=== PATIENT | female | born 1930 | race Caucasian/White ===

== ENCOUNTER 2020-02-17 19:17 | Inpatient (IN) | payer MEDICAID ==
[~2020-02-17] VITALS: Ht 160 cm; Wt 67.1 kg
[2020-02-17] MEDS ORDERED: ONDANSETRON HCL 4MG/2ML INJ IV STA (20:07)
[2020-02-17] MEDS ORDERED: MORPHINE SULFATE 4 MG/ML CPJ (NOT FOR IM USE) IV STA (20:07)
[2020-02-17] MEDS ORDERED: SODIUM CHLORIDE 0.9% 1,000 ML IV ONE (20:07)
[2020-02-17 20:28] LABS: BASOPHILS % 0.4 % (0.0-2.0); EOSINOPHILS % 0.8 % (0.0-5.0); HEMATOCRIT. 38.1 % (36.0-48.0); HEMOGLOBIN. 13.1 g/dL (12.0-16.0); LYMPHOCYTES % 9.7 % (20.0-50.0); MEAN CORPUSCULAR HEMOGLOBIN 29.6 pg (28.0-32.0); MEAN CORPUSCULAR VOLUME 86.5 fL (81.0-99.0); NEUTROPHILS % 85.1 % (40.0-76.0); RED CELL DISTRIBUTION WIDTH 13.7 % (11.6-14.6)
[2020-02-17 20:38] LABS: PROTHROMBIN TIME 10.2 sec (9.6-11.0)
[2020-02-17 20:45] LABS: CHLORIDE 107 mEq/L (98-107)
[2020-02-17 21:09] LABS: MEAN PLATELET VOLUME 9.4 fl (7.4-10.4)
[2020-02-17 21:11] LABS: PLATELET 217 x1000/uL (130-400)
[2020-02-17] MEDS ORDERED: IOHEXOL-300 100 ML BOTTLE ONE (23:21)
[2020-02-18] VITALS (72 sets, daily range): BP systolic 114–172; BP diastolic 59–96
[2020-02-18] MEDS ORDERED: FLUCONAZOLE 400MG/200ML PREMIX IV SCH
[2020-02-18] MEDS ORDERED: PIPERACILLIN/TAZOBACTAM 3.375GM/50ML PREMIX IV SCH
[2020-02-18] MEDS ORDERED: MORPHINE SULFATE 4 MG/ML CPJ (NOT FOR IM USE) IV ONE (00:15)
[2020-02-18] MEDS ORDERED: FENTANYL CITRATE/PF 50MCG/ML 2ML VIAL ONE (01:16)
[2020-02-18] MEDS ORDERED: PROPOFOL 200MG/20ML VIAL IV ONE (01:16)
[2020-02-18] MEDS ORDERED: ROCURONIUM BROMIDE 10MG/ML VIAL 5ML IV ONE (01:16)
[2020-02-18] MEDS ORDERED: MIDAZOLAM HCL 2 MG/2 ML VIAL ONE (01:16)
[2020-02-18] MEDS ORDERED: GLYCOPYRROLATE 0.2 MG/ML 2ML VIAL ONE (01:16)
[2020-02-18] MEDS ORDERED: NEOSTIGMINE METHYLSULFATE 1MG/ML 10 ML VIAL ONE (01:16)
[2020-02-18] MEDS ORDERED: SUCCINYLCHOLINE CHLORIDE 200MG/10ML IV ONE (01:17)
[2020-02-18] MEDS ORDERED: CEFAZOLIN SODIUM 1000MG/VIAL ONE (01:17)
[2020-02-18] MEDS ORDERED: ONDANSETRON HCL 4MG/2ML INJ ONE (01:17)
[2020-02-18] MEDS ORDERED: EPHEDRINE SULFATE 50MG/ML VIAL ONE (01:17)
[2020-02-18] MEDS ORDERED: METOCLOPRAMIDE HCL 10MG/2ML VIAL ONE (01:17)
[2020-02-18] MEDS ORDERED: SODIUM CHLORIDE 0.9% 10ML VIAL ONE (01:17)
[2020-02-18] MEDS ORDERED: LIDOCAINE HCL/PF 1% 10 MG/ML 5ML VIAL ONE (01:17)
[2020-02-18] MEDS ORDERED: PHENYLEPHRINE HCL 10 MG/ML 1ML (IV VIAL) IV ONE (01:17)
[2020-02-18] MEDS ORDERED: ETOMIDATE 2MG/ML 10ML VIAL IV ONE (01:18)
[2020-02-18] MEDS ORDERED: ONDANSETRON HCL 4MG/2ML INJ IV PRN (01:30)
[2020-02-18] MEDS ORDERED: MORPHINE SULFATE 2 MG/ML CPJ (NOT FOR IM USE) IV PRN (01:30)
[2020-02-18] MEDS ORDERED: HYDROMORPHONE HCL/PF 2MG/ML CPJ IV PRN (01:30)
[2020-02-18] MEDS ORDERED: MORPHINE SULFATE 4 MG/ML CPJ (NOT FOR IM USE) IV PRN (01:45)
[2020-02-18] MEDS ORDERED: FLUCONAZOLE 400MG/200ML BAG 200 ML IV SCH ×2 (02:00→04:00)
[2020-02-18] MEDS ORDERED: SODIUM CHLORIDE 0.9% 1,000 ML IV ONE (02:00)
[2020-02-18] MEDS: MORPHINE SULFATE 2 MG/ML CPJ (NOT FOR IM USE) IV PRN ×2 (03:22→12:44)
[2020-02-18] MEDS ORDERED: MEPERIDINE HCL/PF 25MG/ML CPJ IV PRN (03:26)
[2020-02-18] MEDS: DEXT 5%/0.45% NACL KCL 20MEQ/L 1,000 ML IV SCH ×2 (04:19→14:00)
[2020-02-18] MEDS: HYDROMORPHONE HCL/PF 2MG/ML CPJ IV PRN ×2 (04:36→15:28)
[2020-02-18 05:22] LABS: CHLORIDE 113 mEq/L (98-107)
[2020-02-18 05:29] LABS: HEMATOCRIT. 35.4 % (36.0-48.0); HEMOGLOBIN. 12.3 g/dL (12.0-16.0); MEAN CORPUSCULAR VOLUME 86.4 fL (81.0-99.0); MEAN PLATELET VOLUME 9.4 fl (7.4-10.4); PLATELET 156 x1000/uL (130-400); RED CELL DISTRIBUTION WIDTH 13.5 % (11.6-14.6)
[2020-02-18] MEDS: FAMOTIDINE 20MG/2ML VIAL IV SCH (09:59)
[2020-02-18] MEDS ORDERED: PIPERACILLIN/TAZOBACTAM 3.375 G in DEXT 5% WATER 100 ML IV SCH (11:00)
[2020-02-18] MEDS: PIPERACILLIN/TAZOBACTAM 2.25 G in DEXTROSE 5% WATER 50 ML IV SCH ×3 (13:48→23:08)
[2020-02-18 18:05] LABS: PLATELET ESTIMATE NORMAL
[2020-02-19] VITALS (30 sets, daily range): BP systolic 136–165; BP diastolic 66–97
[2020-02-19] MEDS: DEXT 5%/0.45% NACL KCL 20MEQ/L 1,000 ML IV SCH ×4 (00:20→23:17)
[2020-02-19] MEDS: HYDROMORPHONE HCL/PF 2MG/ML CPJ IV PRN ×3 (01:47→16:12)
[2020-02-19] MEDS ORDERED: FLUCONAZOLE 200 MG/100ML BAG 100 ML IV SCH (04:00)
[2020-02-19] MEDS: PIPERACILLIN/TAZOBACTAM 2.25 G in DEXTROSE 5% WATER 50 ML IV SCH ×4 (05:21→23:17)
[2020-02-19 05:22] LABS: HEMATOCRIT. 34.4 % (36.0-48.0); HEMOGLOBIN. 11.6 g/dL (12.0-16.0); MEAN CORPUSCULAR HEMOGLOBIN 29.4 pg (28.0-32.0); MEAN PLATELET VOLUME 9.1 fl (7.4-10.4); PLATELET 195 x1000/uL (130-400); RED BLOOD CELL COUNT 3.96 mill/uL (4.2-5.4); RED CELL DISTRIBUTION WIDTH 13.7 % (11.6-14.6)
[2020-02-19] MEDS: FAMOTIDINE 20MG/2ML VIAL IV SCH (08:58)
[2020-02-19 10:12] LABS: PLATELET ESTIMATE NORMAL
[2020-02-19] MEDS ORDERED: FLUCONAZOLE 400MG/200ML BAG 200 ML IV SCH (10:30)
[2020-02-19 11:18] LABS: CLARITY URINE CLOUDY (CLEAR); COLOR URINE YELLOW (YELLOW); KETONES URINE NEGATIVE (NEGATIVE); LEUKOCYTE ESTERASE URINE NEGATIVE (NEGATIVE); NITRITE URINE NEGATIVE (NEGATIVE); OCCULT BLOOD URINE 2+ (NEGATIVE); PROTEIN URINE 1+ (NEGATIVE); SPECIFIC GRAVITY URINE 1.021 (1.005-1.030); UROBILINOGEN URINE 0.2 E.U./dL (0.2-1.0)
[2020-02-20] VITALS (11 sets, daily range): BP systolic 146–171; BP diastolic 75–103
[2020-02-20] MEDS: PIPERACILLIN/TAZOBACTAM 2.25 G in DEXTROSE 5% WATER 50 ML IV SCH ×3 (06:00→17:38)
[2020-02-20 08:11] LABS: HEMOGLOBIN. 11.2 g/dL (12.0-16.0); MEAN CORPUSCULAR HEMOGLOBIN 29.3 pg (28.0-32.0); MEAN CORPUSCULAR VOLUME 86.3 fL (81.0-99.0); MEAN PLATELET VOLUME 9.1 fl (7.4-10.4); PLATELET 201 x1000/uL (130-400); RED BLOOD CELL COUNT 3.82 mill/uL (4.2-5.4)
[2020-02-20] MEDS: DEXT 5%/0.45% NACL KCL 20MEQ/L 1,000 ML IV SCH ×2 (08:27→17:38)
[2020-02-20] MEDS: FAMOTIDINE 20MG/2ML VIAL IV SCH (08:27)
[2020-02-20] MEDS: FLUCONAZOLE 200 MG/100ML BAG 100 ML IV SCH (08:28)
[2020-02-20] MEDS: MORPHINE SULFATE 2 MG/ML CPJ (NOT FOR IM USE) IV PRN ×3 (08:29→22:24)
[2020-02-20] MEDS ORDERED: HYDRALAZINE 20MG/ML VIAL IV PRN (08:45)
[2020-02-20] MEDS: HYDRALAZINE 20MG/ML VIAL IV PRN (15:28)
[2020-02-20 15:50] LABS: PLATELET ESTIMATE NORMAL
[2020-02-20] MEDS ORDERED: VANCOMYCIN 1250MG in DEXTROSE 5% WATER 250ML IV NR (20:00)
[2020-02-21] VITALS (12 sets, daily range): BP systolic 132–196; BP diastolic 54–103
[2020-02-21] MEDS: PIPERACILLIN/TAZOBACTAM 2.25 G in DEXTROSE 5% WATER 50 ML IV SCH ×5 (02:22→23:41)
[2020-02-21] MEDS: DEXT 5%/0.45% NACL KCL 20MEQ/L 1,000 ML IV SCH ×3 (02:27→23:41)
[2020-02-21] MEDS: FLUCONAZOLE 200 MG/100ML BAG 100 ML IV SCH (05:31)
[2020-02-21 05:55] LABS: HEMATOCRIT. 33.4 % (36.0-48.0); HEMOGLOBIN. 11.5 g/dL (12.0-16.0); MEAN CORPUSCULAR HEMOGLOBIN 29.5 pg (28.0-32.0); MEAN CORPUSCULAR VOLUME 85.3 fL (81.0-99.0); MEAN PLATELET VOLUME 8.7 fl (7.4-10.4); PLATELET 227 x1000/uL (130-400); RED BLOOD CELL COUNT 3.92 mill/uL (4.2-5.4)
[2020-02-21 06:34] LABS: CHLORIDE 102 mEq/L (98-107)
[2020-02-21] MEDS: FAMOTIDINE 20MG/2ML VIAL IV SCH (09:34)
[2020-02-21 10:06] LABS: PLATELET ESTIMATE NORMAL
[2020-02-21] MEDS: MORPHINE SULFATE 2 MG/ML CPJ (NOT FOR IM USE) IV PRN (13:07)
[2020-02-21] MEDS ORDERED: VANCOMYCIN 750 MG PREMIX 150 ML IV SCH (14:00)
[2020-02-21] MEDS: ONDANSETRON HCL 4MG/2ML INJ IV PRN (14:05)
[2020-02-22] VITALS (8 sets, daily range): BP systolic 135–160; BP diastolic 63–89
[2020-02-22] MEDS: PIPERACILLIN/TAZOBACTAM 2.25 G in DEXTROSE 5% WATER 50 ML IV SCH ×4 (05:16→23:29)
[2020-02-22 06:04] LABS: HEMATOCRIT. 29.6 % (36.0-48.0); HEMOGLOBIN. 10.3 g/dL (12.0-16.0); MEAN CORPUSCULAR HEMOGLOBIN 29.3 pg (28.0-32.0); PLATELET 202 x1000/uL (130-400); RED BLOOD CELL COUNT 3.52 mill/uL (4.2-5.4); RED CELL DISTRIBUTION WIDTH 12.9 % (11.6-14.6)
[2020-02-22 06:07] LABS: CHLORIDE 105 mEq/L (98-107)
[2020-02-22] MEDS: FLUCONAZOLE 200 MG/100ML BAG 100 ML IV SCH (06:30)
[2020-02-22] MEDS: DEXT 5%/0.45% NACL KCL 20MEQ/L 1,000 ML IV SCH (09:01)
[2020-02-22] MEDS: FAMOTIDINE 20MG/2ML VIAL IV SCH (09:01)
[2020-02-22] MEDS: HYDRALAZINE 20MG/ML VIAL IV PRN (10:19)
[2020-02-22] MEDS: MORPHINE SULFATE 2 MG/ML CPJ (NOT FOR IM USE) IV PRN ×2 (11:26→22:41)
[2020-02-22] MEDS ORDERED: POTASSIUM CHLORIDE INJ 40 MEQ in DEXT 5% WATER 250 ML IV SCH (14:00)
[2020-02-22 14:22] LABS: PLATELET ESTIMATE NORMAL
[2020-02-23 00:12] VITALS: BP 163/86
[2020-02-23] MEDS: DEXT 5%/0.45% NACL KCL 20MEQ/L 1,000 ML IV SCH ×3 (01:47→15:38)
[2020-02-23 04:00] VITALS: BP 158/86
[2020-02-23] MEDS: PIPERACILLIN/TAZOBACTAM 2.25 G in DEXTROSE 5% WATER 50 ML IV SCH ×2 (06:19→11:27)
[2020-02-23] MEDS: FLUCONAZOLE 200 MG/100ML BAG 100 ML IV SCH (06:27)
[2020-02-23] MEDS: HYDRALAZINE 20MG/ML VIAL IV PRN (06:34)
[2020-02-23 07:23] LABS: BASOPHILS % 0.4 % (0.0-2.0); HEMATOCRIT. 31.1 % (36.0-48.0); HEMOGLOBIN. 10.9 g/dL (12.0-16.0); LYMPHOCYTES % 7.2 % (20.0-50.0); MEAN CORPUSCULAR HEMOGLOBIN 29.5 pg (28.0-32.0); MEAN CORPUSCULAR VOLUME 84.7 fL (81.0-99.0); MEAN PLATELET VOLUME 7.8 fl (7.4-10.4); MONOCYTES % 10.9 % (2.0-8.0); NEUTROPHILS % 79.5 % (40.0-76.0); PLATELET 208 x1000/uL (130-400); RED BLOOD CELL COUNT 3.68 mill/uL (4.2-5.4); RED CELL DISTRIBUTION WIDTH 13.3 % (11.6-14.6)
[2020-02-23 07:36] LABS: CHLORIDE 105 mEq/L (98-107)
[2020-02-23 08:00] VITALS: BP 137/76
[2020-02-23] MEDS: FAMOTIDINE 20MG/2ML VIAL IV SCH (08:10)
[2020-02-23] MEDS: MORPHINE SULFATE 2 MG/ML CPJ (NOT FOR IM USE) IV PRN ×2 (10:03→20:58)
[2020-02-23 12:00] VITALS: BP 145/77
[2020-02-23] MEDS ORDERED: CEFTRIAXONE 2 G PREMIX 50 ML IV SCH (14:30)
[2020-02-23] MEDS: CEFTRIAXONE 2 G in DEXTROSE 5% WATER 50 ML IV SCH (15:38)
[2020-02-23 16:00] VITALS: BP 130/88
[2020-02-23 20:00] VITALS: BP 146/72
[2020-02-24] VITALS (7 sets, daily range): BP systolic 147–168; BP diastolic 72–100
[2020-02-24] MEDS: DEXT 5%/0.45% NACL KCL 20MEQ/L 1,000 ML IV SCH ×3 (04:37→23:03)
[2020-02-24] MEDS: FLUCONAZOLE 200 MG/100ML BAG 100 ML IV SCH (05:00)
[2020-02-24 07:16] LABS: BASOPHILS % 0.5 % (0.0-2.0); EOSINOPHILS % 1.9 % (0.0-5.0); HEMATOCRIT. 32.6 % (36.0-48.0); HEMOGLOBIN. 11.2 g/dL (12.0-16.0); LYMPHOCYTES % 9.1 % (20.0-50.0); MEAN CORPUSCULAR HEMOGLOBIN 28.9 pg (28.0-32.0); MEAN CORPUSCULAR VOLUME 84.3 fL (81.0-99.0); MEAN PLATELET VOLUME 7.7 fl (7.4-10.4); NEUTROPHILS % 78.5 % (40.0-76.0); PLATELET 223 x1000/uL (130-400); RED BLOOD CELL COUNT 3.87 mill/uL (4.2-5.4); RED CELL DISTRIBUTION WIDTH 13.3 % (11.6-14.6)
[2020-02-24 07:45] LABS: CHLORIDE 103 mEq/L (98-107)
[2020-02-24] MEDS: FAMOTIDINE 20MG/2ML VIAL IV SCH (08:49)
[2020-02-24] MEDS: MORPHINE SULFATE 2 MG/ML CPJ (NOT FOR IM USE) IV PRN ×2 (08:50→12:51)
[2020-02-24] MEDS: CEFTRIAXONE 2 G in DEXTROSE 5% WATER 50 ML IV SCH (16:20)
[2020-02-24] MEDS ORDERED: DOCUSATE SODIUM 250MG CAPSULE PO PRN (18:45)
[2020-02-24] MEDS: MORPHINE SULFATE 4 MG/ML CPJ (NOT FOR IM USE) IV PRN (19:43)
[2020-02-24] MEDS: HYDRALAZINE 10 MG in SODIUM CHLORIDE 0.9% 49.5 ML IV PRN (21:47)
[2020-02-25] VITALS: BP 143/62
[2020-02-25 04:00] VITALS: BP 157/72
[2020-02-25 05:03] LABS: CHLORIDE 102 mEq/L (98-107)
[2020-02-25 05:59] LABS: BASOPHILS % 0.6 % (0.0-2.0); EOSINOPHILS % 2.2 % (0.0-5.0); HEMATOCRIT. 27.7 % (36.0-48.0); HEMOGLOBIN. 9.8 g/dL (12.0-16.0); LYMPHOCYTES % 10.1 % (20.0-50.0); MEAN CORPUSCULAR HEMOGLOBIN 29.6 pg (28.0-32.0); MEAN CORPUSCULAR VOLUME 83.2 fL (81.0-99.0); MEAN PLATELET VOLUME 7.6 fl (7.4-10.4); NEUTROPHILS % 78.1 % (40.0-76.0); PLATELET 208 x1000/uL (130-400); RED BLOOD CELL COUNT 3.33 mill/uL (4.2-5.4); RED CELL DISTRIBUTION WIDTH 13.1 % (11.6-14.6)
[2020-02-25] MEDS: HYDRALAZINE 10 MG in SODIUM CHLORIDE 0.9% 49.5 ML IV PRN ×2 (07:01→20:40)
[2020-02-25 08:00] VITALS: BP 148/59
[2020-02-25] MEDS: FAMOTIDINE 20MG/2ML VIAL IV SCH (08:42)
[2020-02-25] MEDS: MORPHINE SULFATE 4 MG/ML CPJ (NOT FOR IM USE) IV PRN ×4 (10:06→22:05)
[2020-02-25 11:37] VITALS: BP 154/72
[2020-02-25] MEDS: CEFTRIAXONE 2 G in DEXTROSE 5% WATER 50 ML IV SCH (15:06)
[2020-02-25] MEDS: DEXT 5%/0.45% NACL KCL 20MEQ/L 1,000 ML IV SCH (15:06)
[2020-02-25 16:00] VITALS: BP 149/71
[2020-02-25] MEDS: ONDANSETRON HCL 4MG/2ML INJ IV PRN (18:01)
[2020-02-25] MEDS ORDERED: FLUCONAZOLE 100MG TABLET PO SCH (19:45)
[2020-02-25 20:00] VITALS: BP 162/74
[2020-02-26] VITALS: BP 145/63
[2020-02-26] MEDS: DEXT 5%/0.45% NACL KCL 20MEQ/L 1,000 ML IV SCH (03:25)
[2020-02-26 04:00] VITALS: BP 147/65
[2020-02-26 06:18] LABS: BASOPHILS % 0.3 % (0.0-2.0); EOSINOPHILS % 1.3 % (0.0-5.0); HEMOGLOBIN. 9.8 g/dL (12.0-16.0); LYMPHOCYTES % 11.7 % (20.0-50.0); MEAN CORPUSCULAR HEMOGLOBIN 29.4 pg (28.0-32.0); MEAN CORPUSCULAR VOLUME 83.5 fL (81.0-99.0); MEAN PLATELET VOLUME 7.6 fl (7.4-10.4); MONOCYTES % 10.8 % (2.0-8.0); NEUTROPHILS % 75.9 % (40.0-76.0); PLATELET 228 x1000/uL (130-400); RED BLOOD CELL COUNT 3.35 mill/uL (4.2-5.4); RED CELL DISTRIBUTION WIDTH 12.9 % (11.6-14.6)
[2020-02-26 06:31] LABS: CHLORIDE 102 mEq/L (98-107)
[2020-02-26 08:00] VITALS: BP 145/74
[2020-02-26] MEDS: FAMOTIDINE 20MG/2ML VIAL IV SCH (08:20)
[2020-02-26] MEDS: MORPHINE SULFATE 4 MG/ML CPJ (NOT FOR IM USE) IV PRN ×2 (09:34→13:54)
[2020-02-26 12:00] VITALS: BP 122/73
[2020-02-26] MEDS: MULTIVITAMINS,THER W-MINERALS TABLET PO SCH (14:28)
[2020-02-26 16:00] VITALS: BP 136/66
[2020-02-26 20:00] VITALS: BP 127/63
[2020-02-27] VITALS (7 sets, daily range): BP systolic 135–155; BP diastolic 64–77
[2020-02-27] MEDS: MORPHINE SULFATE 4 MG/ML CPJ (NOT FOR IM USE) IV PRN (02:24)
[2020-02-27] MEDS ORDERED: HYDR-4001 MT (08:13)
[2020-02-27] MEDS: FAMOTIDINE 20MG/2ML VIAL IV SCH (09:07)
[2020-02-27] MEDS: MULTIVITAMINS,THER W-MINERALS TABLET PO SCH (09:07)
[2020-02-27] MEDS: MORPHINE SULFATE 2 MG/ML CPJ (NOT FOR IM USE) IV PRN (10:18)
[2020-02-27] MEDS ORDERED: OMEP20CA14 MT (13:51)
[2020-02-27] MEDS ORDERED: LIDOCAINE 5% PATCH TOP SCH (14:00)
== END 2020-02-27 18:55 | disposition home health service (06) | DRG 222 ==
LOC: ER 19:17 → MICUNO 02-18 00:22 → 5EST 02-19 16:21 → 6EST 02-24 21:02
PROVIDERS: ADMIT Internal Medicine; ATTEND Internal Medicine
PROC: 0DU707Z Supplement Stomach, Pylorus with Autologous Tissue Substitute, Open Approach (ICD-10-PCS; principal; 2020-02-18)
DX: K27.5 Chronic or unspecified peptic ulcer, site unspecified, with perforation (principal); K65.9 Peritonitis, unspecified; I10 Essential (primary) hypertension; K40.90 Unilateral inguinal hernia, without obstruction or gangrene, not specified as recurrent; Z87.11 Personal history of peptic ulcer disease; Z79.899 Other long term (current) drug therapy
CPT/HCPCS: 36415; 71046; 74177; 80048; 80053; 81003; 84484; 85025; 87070; 87075; 87077; 87106; 87186; 93005; 93970; 96374; 97116; 97162; 97166; 97530; 97535; 99285; J0330; J0360; J0690; J0696; J1170; J1450; J2250; J2270; J2370; J2405; J2543; J2704; J2710; J2765; J3010; J3370; J3480; J3490; J7030; J7060; Q9967